=== PATIENT | female | born 1955 | race Caucasian/White ===

== ENCOUNTER 2017-06-01 07:57 | Emergency (ER) | payer OTHER ==
[~2017-06-01] VITALS: Ht 160 cm; Wt 81.7 kg
[~2017-06-01 07:57] MED LIST: ADULT LOW DOSE81 MG PO; DAILY VITAMIN1 EAC2 PO; NORCO 7.5-3251 EACH PO; SIMVASTATIN20 MG PO; SYNTHROID50 MCG PO; TRAZODONE HCL150 MG PO
[2017-06-01] MEDS ORDERED: LISINOPRIL20 MG PO (08:11)
--- NOTE | 2017-06-01 22:55 | EKG ---
[facility] [address] [facility] [place] [address] Signed Normal sinus rhythm Junctional ST depression, probably normal Borderline ECG No previous ECGs available Confirmed by KELLY JOSUE MD ([id number]) on 06/01/2017 10:55:09 PM Electronically Signed By: KELLY JOSUE MD 06/01/17 2255 PATIENT NAME: WILLIAN YOUNG Electrocardiogram DATE OF : 53 PHYSICIAN: KELLY JOSUE MD REPORT #: [id number] REPORT IS CONFIDENTIAL AND NOT TO BE RELEASED WITHOUT AUTHORIZATION
== END 2017-06-01 09:55 | disposition home or self-care (01) ==
LOC: ED 07:57
DX: R00.2 Palpitations (principal); I10 Essential (primary) hypertension; E03.9 Hypothyroidism, unspecified; E78.00 Pure hypercholesterolemia, unspecified; Z96.651 Presence of right artificial knee joint; Z88.8 Allergy status to other drugs, medicaments and biological substances; Z79.899 Other long term (current) drug therapy; Z79.82 Long term (current) use of aspirin
CPT/HCPCS: 70450; 71010; 80053; 84484; 85025; 93005; 93010; 99284

== ENCOUNTER 2018-01-22 06:48 | Day surgery (SDC) | payer OTHER ==
[~2018-01-22] VITALS: Ht 160 cm; Wt 82.5 kg
[~2018-01-22 06:48] MED LIST changes: +LISINOPRIL20 MG PO
[2018-01-22] MEDS ORDERED: ULTRAM50 MG PO (07:08)
--- NOTE | 2018-01-22 09:52 | NUR ---
01/22/18 0952 Honey Pickard 0985 PT ARRIVED TO PACU WITH EYES OPEN AND TALKING TO RN. VSS. PT DENIES PAIN AND NAUSEA. RESP EVEN AND UNLABORED. 0945 PT BACK TO SLEEP.
--- NOTE | 2018-01-22 11:23 | OR ---
[facility] [address] [place], [place] [address] Signed DATE OF OPERATION: 01/22/2018 SURGEON: Ramón Askew MD COLONOSCOPY REPORT PREOPERATIVE DIAGNOSES: 1. Personal history of colonic polyps. 2. Father with a history of colon cancer in his 70s. POSTOPERATIVE DIAGNOSIS: Minimal internal hemorrhoids. PROCEDURE: Colonoscopy without biopsy. ESTIMATED BLOOD LOSS: None. INDICATIONS: Willian is a 62-year-old lady who was asked to see me for followup colonoscopy. She has had two prior colonoscopies. She has had colonic polyps removed. In addition, her father had colon cancer in his 70s. She said otherwise she has no lower GI complaints currently. I met with Willian in the office and I gave her a pamphlet on colonoscopy. She understands the nature of the test along with the risks including, but not limited to gas bloating, crampy abdominal pain, bleeding, perforation, requiring surgery, and missed diagnosis. She also understands the need for IV conscious sedation. She had expressed understanding and wished to proceed. DESCRIPTION OF PROCEDURE: Willian was taken into our endoscopy suite and placed in the left lateral decubitus position. She was given preoperative antibiotic. She was also given 8 mg of Versed and 175 mcg of fentanyl to cover the case. A digital rectal exam was performed and this was unremarkable. After this, the adult colonoscope was introduced and advanced all around into the cecum under direct visualization of camera without difficulty. Her prep was good. We could easily see the new kol[place]anek's foot. The appendiceal orifice and the ileocecal valve. Pictures were taken throughout for photodocumentation. The scope was then slowly withdrawn. We found no pathology throughout the entire colon or rectum. Upon retroflexion of scope, she has some tiny internal hemorrhoid columns. After this, the gas was suctioned out. The colonoscope removed. Willian tolerated the procedure quite Electronically Signed By: RAMÓN ASKEW MD 01/22/18 1123 PATIENT NAME: WILLIAN YOUNG OPERATIVE REPORT DATE OF : 53 REPORT #: [id number] PHYSICIAN: RAMÓN ASKEW MD PCP: ANT ESPINOSA DO REPORT IS CONFIDENTIAL AND NOT TO BE RELEASED WITHOUT AUTHORIZATION [facility] [address] [place] [id number] Signed well. RECOMMENDATIONS: I will see Willian gatica in my office in 5 years for repeat colonoscopy due to her personal and family history. Ramón Askew MD ALB/MODL /[id number] cc: MD Ant Rainey DO W Norman Sitz, MD Copies: RAMÓN ASKEW MD, ARIAN DO SITZ, W NORMAN MD ~ Electronically Signed By: RAMÓN ASKEW MD 01/22/18 1123 PATIENT NAME: WILLIAN YOUNG OPERATIVE REPORT DATE OF : 53 REPORT #: [id number] PHYSICIAN: RAMÓN ASKEW MD PCP: ANT ESPINOSA DO REPORT IS CONFIDENTIAL AND NOT TO BE RELEASED WITHOUT AUTHORIZATION
== END 2018-01-22 10:30 | disposition home or self-care (01) ==
LOC: DS 06:48 → OPS 06:48 → DS 09:15 → OPS 09:15
PROVIDERS: Colon & Rectal Surgery
PROC: 0DJD8ZZ Inspection of Lower Intestinal Tract, Via Natural or Artificial Opening Endoscopic (ICD-10-PCS; principal; 2018-01-22 09:15)
DX: Z12.11 Encounter for screening for malignant neoplasm of colon (principal); K64.8 Other hemorrhoids; I10 Essential (primary) hypertension; E78.5 Hyperlipidemia, unspecified; E03.9 Hypothyroidism, unspecified; F32.9 Major depressive disorder, single episode, unspecified; F41.9 Anxiety disorder, unspecified; Z88.5 Allergy status to narcotic agent; Z79.82 Long term (current) use of aspirin; Z86.010 Personal history of colon polyps; Z80.0 Family history of malignant neoplasm of digestive organs; Z79.899 Other long term (current) drug therapy
CPT/HCPCS: 99153; G0500; J2250; J3010; J7120

== ENCOUNTER 2024-07-15 08:20 | Day surgery (SDC) | payer MEDICARE, OTHER ==
[~2024-07-15] VITALS: Ht 160 cm; Wt 82.0 kg
[~2024-07-15 08:20] MED LIST changes: +ALLEGRA ALLERG180 MG PO; +ATORVASTATIN CA40 MG PO; +CEFAZOLIN SODIUM 2 GM/20 ML SYR IV SCH; +CEPHALEXIN500 M1 PO; +GABAPENTIN300 MG PO; +IBLOOD GLUCOSE TEST STRIP 1 EA TEST VI PRN; +LACTATED RINGER'S 1,000 ML IV SCH; +LEVOTHYROXINE100 MCG PO; +LIDOCAINE HCL 1% 5 ML SDV INJ ONE; +LIPITOR20 MG PO; +LISINOPRIL-HCT1 EACH PO; +MIDAZOLAM HCL 5 MG/5 ML VIAL IV PRN; +MONTELUKAST SOD10 MG PO; +NORCO 5-325 TA1 EACH PO; +ONDANSETRON HCL4 MG PO; +ONDANSETRON ODT8 MG PO; +OXYCODONE HCL5 MG PO; +TRAMADOL HCL50 MG PO; +TRAZODONE HCL50 MG PO; +ULTRAM50 MG PO; +ZOLOFT25 MG PO; +fentaNYL citrate 100 MCG/2 ML VIAL IV PRN
[2024-07-15 08:42] VITALS: BP 149/80
[2024-07-15] MEDS ORDERED: MIDAZOLAM HCL 5 MG/5 ML VIAL ONE (09:41)
[2024-07-15] MEDS ORDERED: fentaNYL citrate 100 MCG/2 ML VIAL ONE (09:42)
--- NOTE | 2024-07-15 10:38 | NUR ---
07/15/24 Starla Kyle 1030-PT TO PACU IN LL POSITIONS. EYES CLOSED. PT RESPONDS TO VERBAL AND TACTILE STIMULI. DENIES PAIN AND FALLS QUICKLY BACK TO SLEEP. BREATHING EASY AND UNLABORED. SPO2 >95% ON 3 L O2 VIA NC. 1037-PT AWAKENS AND ASKS QUESTIONS ABOUT PROCEDURE. REMAINS DROWSY AND FALLS QUICKLY BACK TO SLEEP. BREATHING EASY AND UNLABORED. SPO2 >95% ON 3 L O2 VIA NC.
[2024-07-15 11:34] VITALS: BP 132/90
--- NOTE | 2024-07-15 16:09 | OR ---
[facility] [address] [place], [place] [address] Signed DATE OF OPERATION: 07/15/2024 SURGEON: Ramón Askew MD PREOPERATIVE DIAGNOSES: 1. Father with colon cancer in his 70s. 2. Personal history of adenomatous colonic polyps in 2013 at age 59. 3. Internal hemorrhoids. POSTOPERATIVE DIAGNOSIS: A 3 mm polyps at 4 and 7 cm in rectum. PROCEDURE: Colonoscopy without biopsy. ESTIMATED BLOOD LOSS: None. INDICATIONS FOR THE PROCEDURE: Willian is a 69-year-old female, asked to see me for followup colonoscopy. In 2004, at age of 50, she had a hyperplastic polyp removed from her rectum by Dr. Brown. She came back at age, 59 in 2013, met Dr. Brown and had a 7 mm adenomatous polyp removed in her left colon. She used 9 mg of Versed and 200 mcg of fentanyl. I helped in 2017 at the age of 63. She had very minimal if any internal hemorrhoid tissue. She did well with 8 mg of Versed and 175 mcg of fentanyl. We asked her to stay on the 5-year rotation due to her personal family history. In the office, I gave her a pamphlet on colonoscopy. We had reviewed the nature of the test. There is risk including, but not limited to gas bloating, crampy abdominal pain, bleeding, perforation requiring surgery, and missed diagnosis. We also reviewed the written instructions for the bowel prep line by line. We had also reviewed her medications. We did not change her medications. She recalls the need for IV conscious sedation. She understands an adult person asked to take her home afterwards. She had expressed understanding and wished to proceed. DESCRIPTION OF PROCEDURE: Willian was taken into our endoscopy suite and placed in the left lateral decubitus position. She was given divided doses of 8 mg of Versed and 150 mcg of fentanyl to cover the case. A digital rectal exam was performed and this was unremarkable. There were no external hemorrhoids. She has good sphincter tone. There were no masses. The adult colonoscope was introduced and advanced under direct visualization of camera. It took a while to get through her colon with some abdominal compression and increasing Electronically Signed By: RAMÓN ASKEW MD 07/15/24 1609 PATIENT NAME: WILLIAN YOUNG OPERATIVE REPORT DATE OF : 53 REPORT #: [id number] PHYSICIAN: RAMÓN ASKEW MD PCP: CINDY TONY MD REPORT IS CONFIDENTIAL AND NOT TO BE RELEASED WITHOUT AUTHORIZATION [facility] [address] [place], [place] [address] Signed doses of Versed and fentanyl in order to get to the cecum itself. Her prep was quite excellent. We could easily see the appendiceal orifice and ileocecal valve. The scope was then slowly withdrawn. We found no pathology throughout the entire colon. In the rectum, we removed several tiny hyperplastic polyps about 3 mm in diameter at 4 and 7 cm. The scope had been retroflexed. She has very minimal if any internal hemorrhoid tissue. After this, the gas was suctioned out. The colonoscope removed. Willian tolerated the procedure quite well. RECOMMENDATIONS: Willian will follow up in my office in 7 to 14 days to review her results. It looks like she will stay on the 5-year rotation because of her family and personal history. Ramón Askew MD ALB/MODL /[id number] cc: MD Ramón Lyons MD Patient Chart Copies: CINDY TONY DMD, ANDREW L MD ~ Electronically Signed By: RAMÓN ASKEW MD 07/15/24 1609 PATIENT NAME: WILLIAN YOUNG OPERATIVE REPORT DATE OF : 53 REPORT #: [id number] PHYSICIAN: RAMÓN ASKEW MD PCP: CINDY TONY MD REPORT IS CONFIDENTIAL AND NOT TO BE RELEASED WITHOUT AUTHORIZATION
--- NOTE | 2024-07-16 11:23 | PATH ---
[facility] [address] [place], [place] [address] Signed SPECIMEN(S): A RECTAL POLYP, 5 CM SPECIMEN SOURCE: A. RECTAL POLYP, 5 CM CLINICAL HISTORY: History of adenomatous polyp, rectal polyps FINAL PATHOLOGIC DIAGNOSIS: Rectum, 5 cm, polypectomy: - Hyperplastic polyp BRP MICROSCOPIC EXAMINATION: Histologic sections of all submitted blocks are examined by light microscopy. These findings, together with the gross examination, support the pathologic diagnosis. GROSS DESCRIPTION: The specimen, labeled and designated "[place]tw[place] rectal polyp, 5 cm," is received in formalin and consists of two gupta soft tissue fragments, ranging from 0.3-0.4 cm. Entirely submitted in (A1). VB (under the direct supervision of a pathologist) The Gross Description was prepared using a voice recognition system. The report was reviewed for accuracy; however, sound-alike word errors, addition and/or deletions may occur. If there is any question about this report, please contact Client Services. ADDITIONAL NOTES: Immunohistochemical and/or in situ hybridization studies if performed in this case included appropriate positive controls that reacted as expected. This test was developed and its performance characteristics determined by [facility]. It has not been cleared or approved by the U.S. Food and Drug Administration. The FDA has determined that such clearance or approval is not necessary. This test is used for clinical purposes. It should not be regarded as investigational or for research. [facility] is certified under the Clinical Laboratory Improvement Amendments of 1988 (CLIA) as qualified to perform high complexity clinical laboratory testing. PATIENT NAME: WILLIAN YOUNG PATHOLOGY DATE OF : 53 REPORT #: [id number] PHYSICIAN: BETH GUPTA PCP: CINDY TONY MD REPORT IS CONFIDENTIAL AND NOT TO BE RELEASED WITHOUT AUTHORIZATION [facility] [address] [place] [address] [place], [place] [address] Signed PERFORMING LABORATORY: Technical component was [place] [address] (CLIA# [id number]). Professional interpretation was performed by [facility] [place] [address] (CLIA#: [id number]). Diagnostician: James Mclain MD Pathologist Electronically Signed 07/16/2024 Copies: ~ PATIENT NAME: WILLIAN YOUNG PATHOLOGY DATE OF : 53 REPORT #: [id number] PHYSICIAN: BETH GUPTA PCP: CINDY TONY MD REPORT IS CONFIDENTIAL AND NOT TO BE RELEASED WITHOUT AUTHORIZATION
== END 2024-07-15 11:42 | disposition home or self-care (01) ==
LOC: DS 08:20
PROVIDERS: ATTEND Colon & Rectal Surgery
PROC: 0DBP8ZZ Excision of Rectum, Via Natural or Artificial Opening Endoscopic (ICD-10-PCS; principal; 2024-07-15 09:45)
DX: Z12.11 Encounter for screening for malignant neoplasm of colon (principal); K62.1 Rectal polyp; K64.8 Other hemorrhoids; I12.9 Hypertensive chronic kidney disease with stage 1 through stage 4 chronic kidney disease, or unspecified chronic kidney disease; N18.31 Chronic kidney disease, stage 3a; E03.9 Hypothyroidism, unspecified; E78.2 Mixed hyperlipidemia; F33.1 Major depressive disorder, recurrent, moderate; F51.01 Primary insomnia; Z86.0101 Personal history of adenomatous and serrated colon polyps; Z87.891 Personal history of nicotine dependence; Z79.890 Hormone replacement therapy; Z79.899 Other long term (current) drug therapy; Z88.5 Allergy status to narcotic agent; Z90.49 Acquired absence of other specified parts of digestive tract; Z80.0 Family history of malignant neoplasm of digestive organs
CPT/HCPCS: 88305; 99153; G0500; J0690; J2250; J3010; J7121